=== PATIENT | male | born 1980 | race Asian ===

== ENCOUNTER 2018-06-15 07:48 | Inpatient (IN) ==
[2018-06-15] MEDS ORDERED: Etomidate Inj 20 MG/10 ML Ampul IV.PUSH ONE (07:59)
[2018-06-15] MEDS ORDERED: Morphine Inj 4 MG/ML Vial ONE (08:03)
[2018-06-15] MEDS ORDERED: ceFAZolin 2 GM Premix Inj 2 GM/50 ML PIGGYBACK IV.SIG ONE ×2 (08:05→08:18)
[2018-06-15] MEDS ORDERED: Diphtheria/Tetanus/Pertussis Vaccine Inj 0.5 ML Syringe IM ONE (08:05)
[2018-06-15 08:15] LABS: Baso # (Auto) 0.1 th/mm3 (0.0-0.2); Baso % (Auto) 0.4 % (0.0-2.0); Eos # (Auto) 0.2 th/mm3 (0.0-0.4); Eos % (Auto) 0.7 % (0.0-4.0); Hematocrit 38.3 % (39.0-51.0); Hemoglobin 12.6 gm/dL (13.0-17.0); Lymph # (Auto) 5.3 th/mm3 (1.0-4.8); Lymph % (Auto) 21.1 % (9.0-44.0); Mean Corpuscular HGB Conc 32.8 % (32.0-36.0); Mean Corpuscular Hemoglobin 20.6 pg (27.0-34.0); Mean Corpuscular Volume 62.8 fL (80.0-100.0); Mean Platelet Volume 8.7 fL (7.0-11.0); Mono % (Auto) 4.2 % (0.0-8.0); Neut # (Auto) 18.5 th/mm3 (1.8-7.7); Neut % (Auto) 73.6 % (16.0-70.0); Platelet Count 364 th/mm3 (150-450); Red Cell Distribution Width 16.9 % (11.6-17.2); White Blood Count 25.1 th/mm3 (4.0-11.0)
[2018-06-15] MEDS ORDERED: Morphine Inj 4 MG/ML Vial IV.PUSH ONE (08:18)
[2018-06-15] MEDS ORDERED: Succinylcholine Inj 100 MG/5 ML Syringe IV.PUSH ONE ×2 (08:18→12:15)
[2018-06-15] MEDS ORDERED: Post-op Orders (for Pharmacy) OTHER ONE (08:25)
[2018-06-15] MEDS ORDERED: Naloxone Inj 0.4 MG/ML Vial IV.PUSH PRN (08:25)
[2018-06-15] MEDS ORDERED: Bisacodyl 10 MG Supp RECTAL PRN (08:25)
[2018-06-15 08:30] LABS: Calcium 8.2 mg/dL (8.5-10.1); Carbon Dioxide 28.3 meq/L (21.0-32.0); Potassium 3.4 meq/L (3.5-5.1)
[2018-06-15] MEDS ORDERED: Sod Chloride 0.9% Inj 1,000 ML IV.CONT SCH (08:30)
[2018-06-15 08:31] LABS: Activated Partial Thrombo Time 21.2 sec (24.3-30.1); Prothrombin Time 10.4 sec (9.8-11.6)
--- NOTE | 2018-06-15 08:32 | ED ---
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 Interventions: ED Discharge Assessment Last Done: 06/15/18 12:51 Status ED Status: Left Department Discharge Information Discharge Date/Time: 06/15/18 12:51
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
[2018-06-15 09:00] LABS: Eosinophils 2 % (0-4); Lymphocytes 24 % (9-44); Monocytes 2 % (0-8); Ovalocytes 1+; Platelet Estimate Normal (Normal); Platelet Morphology Normal (Normal); Tallied Nucleated RBC 1 (0-0); Target Cells 1+
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
[2018-06-15] MEDS ORDERED: fentaNYL 10 mcg/mL Premix Drip 2,500 MCG/250 ML BAG IV.SIG PRN (09:29)
[2018-06-15] MEDS ORDERED: Sodium Phosphate Inj 30 MMOL in Sodium Chlor 0.9% Inj 250 ML IV.SIG PRN (09:30)
[2018-06-15] MEDS ORDERED: Magnesium Sulfate Inj 2 GM in Sodium Chlor 0.9% Inj 96 ML IV.SIG PRN (09:30)
[2018-06-15] MEDS ORDERED: Potassium Phosphate 500 MG Soluble Tablet PO PRN ×2 (09:30)
[2018-06-15] MEDS ORDERED: Magnesium Sulfate Inj 4 GM in Sodium Chlor 0.9% Inj 92 ML IV.SIG PRN (09:30)
[2018-06-15] MEDS ORDERED: Potassium Chloride 25 MEQ Effervescent Tablet PO PRN (09:30)
[2018-06-15] MEDS ORDERED: Potassium Chlor 20 mEq Premix 20 MEQ/100 ML PIGGYBACK IV.SIG PRN ×2 (09:30)
[2018-06-15] MEDS ORDERED: Magnesium Oxide 400 MG Tablet PO PRN (09:30)
[2018-06-15] MEDS ORDERED: Potassium Phosphate Inj 30 MMOL in Sodium Chlor 0.9% Inj 250 ML IV.SIG PRN (09:30)
[2018-06-15] MEDS ORDERED: Potassium Chlor 40 mEq Premix 40 MEQ/100 ML PIGGYBACK IV.SIG PRN ×2 (09:30)
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
--- NOTE | 2018-06-15 11:32 | P.OP ---
- Preoperative Diagnosis (1) Fracture of patella, right, open Date of procedure: 06/15/18 Procedure: Irrigation and debridement of open right patella fracture, open reduction internal fixation right patella Anesthesia: GETA Surgeon: Bayron Barker MD Prosthetic Aides Teacher: Rommel Dupont PA-C The surgical procedure was assisted by my physician manufacturing assistant. My P.A. presence was necessary throughout this case for the manipulation and positioning of the surgical extremity. My P.A. was assisting me throughout the duration of this procedure. The skill set of a physician manufacturing assistant was medically necessary to complete this procedure. During the surgical case the surgical attendant was working at the back table and the physician manufacturing assistant was directly assisting me. Operation and Findings: Implants used: ITS 3.5 cannulated screws Details of procedure: This patient had an injury resulting in displaced open right patella fracture and displaced right acetabular fracture. Patient is intubated and sedated. He is unable to give consent and no family was available for consent. I discussed this case with Dr. Cardenas. We agreed that case was medically necessary and medically urgent to perform irrigation and debridement of open fracture. Patient was brought to the operating room and placed on the OR table. IV sedation and GETA were administered by anesthesiologist and IV antibiotics were given prior to incision. A timeout procedure was performed. The operative leg was prepped with alcohol followed by Hibiclens and draped in the usual sterile fashion. The procedure began with irrigation and debridement of open fracture. The traumatic lacerations were extended proximally distally. The fracture site was visualized. Small bone fragments were excised. There was a small area of gross contamination. An excisional debridement was performed with rongeurs and scalpel. After excision of contaminated tissue, the wound was thoroughly irrigated with pulsatile lavage. Next, attention was turned towards reduction of fracture. Multiple small for bone fragments were excised. There was one large fragment of the superior lateral aspect of the patella. This fragment was reduced with fracture tenaculums. 2 guidepins were placed across the fracture. Fluoroscopy confirmed appropriate guidepin placement. Screw lengths were measured. Cannulated drill was placed over the guide pins. 2 screws were now placed. Good compression was obtained. Fluoroscopy confirmed well-placed hardware with well-aligned fracture. The retinaculum was now closed with #1 PDS, subcutaneous tissue was closed with 3-0 PDS and skin was closed with le. Sterile dressings were applied. The patient was transferred to [facility] in stable condition. He was placed into a knee immobilizer.
[2018-06-15] MEDS ORDERED: Post-op Orders (for Pharmacy) OTHER STA (11:49)
[2018-06-15] MEDS ORDERED: Phenylephrine/NS 1000 MCG/10ML Syringe IV.PUSH ONE (12:00)
[2018-06-15] MEDS ORDERED: Sodium Chlor 0.9% Inj 250 ML IV.SIG ONE (12:00)
[2018-06-15] MEDS ORDERED: fentaNYL Citrate Inj 100 MCG/2 ML Ampul ONE (12:07)
[2018-06-15 13:05] LABS: ABG Base Excess -0.3 mmol/L (-2-2); ABG PCO2 43 mmHg (38-42); ABG PO2 217 mmHg (61-120)
[2018-06-15] MEDS: Propofol 1000 mg/100 ml Inj 1,000 MG/100 ML BOTTLE IV.CONT PRN (14:33)
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
[2018-06-15] MEDS: Vancomycin Inj 1,000 MG in Sodium Chlor 0.9% Inj 250 ML IV.SIG SCH (18:18)
[2018-06-15] MEDS: ceFAZolin 2 GM Premix Inj 2 GM/50 ML PIGGYBACK IV.SIG SCH (18:19)
[2018-06-15 19:27] LABS: Bilirubin,Urine Negative (Negative); Clarity,Urine Clear (Clear); Color,Urine Straw (Yellw/Straw); Glucose,Urine (UA) Negative (Negative); Leukocyte Esterase,Urine Negative (Negative); Mucus,Urine Few /lpf (Occasional); Nitrite,Urine Negative (Negative); Specific Gravity,Urine 1.012 (1.002-1.035)
[2018-06-15 19:46] LABS: Amphetamine Screen,Urine Neg (Neg); Barbiturate Screen,Urine Neg (Neg); Cannabinoid Screen,Urine Neg (Neg); Cocaine Screen,Urine Neg (Neg)
[2018-06-15 19:50] LABS: Opiate Screen,Urine Neg (Neg)
[2018-06-15] MEDS ORDERED: Chlorhexidine 0.12% Oral Kit 15 ML UDC OROPHARYNG SCH (20:00)
[2018-06-15] MEDS: Gentamicin Inj 80 MG in Sodium Chlor 0.9% Inj 100 ML IV.SIG SCH (20:17)
[2018-06-16] MEDS: Oral Hygiene Kit OROPHARYNG SCH ×2 (00:30→15:58)
[2018-06-16] MEDS: ceFAZolin 2 GM Premix Inj 2 GM/50 ML PIGGYBACK IV.SIG SCH ×3 (01:39→18:02)
[2018-06-16] MEDS: Propofol 1000 mg/100 ml Inj 1,000 MG/100 ML BOTTLE IV.CONT PRN ×2 (01:44→11:32)
[2018-06-16] MEDS: Gentamicin Inj 80 MG in Sodium Chlor 0.9% Inj 100 ML IV.SIG SCH ×3 (02:57→18:02)
[2018-06-16] MEDS: Vancomycin Inj 1,000 MG in Sodium Chlor 0.9% Inj 250 ML IV.SIG SCH (03:57)
[2018-06-16 06:45] LABS: Calcium 7.6 mg/dL (8.5-10.1); Carbon Dioxide 27.1 meq/L (21.0-32.0); Potassium 3.8 meq/L (3.5-5.1)
[2018-06-16 07:03] LABS: Hematocrit 24.5 % (39.0-51.0); Hemoglobin 8.2 gm/dL (13.0-17.0); Mean Corpuscular HGB Conc 33.4 % (32.0-36.0); Mean Corpuscular Hemoglobin 20.6 pg (27.0-34.0); Mean Corpuscular Volume 61.6 fL (80.0-100.0); Mean Platelet Volume 8.5 fL (7.0-11.0); Platelet Count 199 th/mm3 (150-450); Red Blood Count 3.97 mil/mm3 (4.50-5.90); Red Cell Distribution Width 16.2 % (11.6-17.2); White Blood Count 10.6 th/mm3 (4.0-11.0)
[2018-06-16] MEDS: Pantoprazole Inj 40 MG Vial IV.PUSH SCH (09:01)
[2018-06-16] MEDS: Senna/Docusate Sodium 8.6/50 MG Tablet PO SCH (09:02)
--- NOTE | 2018-06-16 10:54 | P.PNOP ---
Subjective Interval history: s/p right open patella fx s/p right acetabulum fx intubated/sedated. no changes Physical Exam Vital signs: Vital Signs 06/15/18 11:47 06/15/18 12:00 06/15/18 14:12 Temperature 99.1 F Pulse Rate 65 Respiratory Rate 16 16 Blood Pressure 160/80 H Pulse Oximetry 100 100 100 06/15/18 16:00 06/15/18 16:21 06/15/18 16:24 Temperature 100.6 F H Pulse Rate 67 70 Respiratory Rate 16 16 16 Blood Pressure 131/75 Pulse Oximetry 100 100 06/15/18 19:49 06/15/18 19:52 06/15/18 20:00 Temperature 99.2 F Pulse Rate 78 76 Respiratory Rate 16 16 25 H Blood Pressure 116/65 Pulse Oximetry 98 99 06/16/18 00:00 06/16/18 01:06 06/16/18 03:53 Temperature 100.2 F H Pulse Rate 70 66 Respiratory Rate 16 17 22 Blood Pressure 99/56 L Pulse Oximetry 98 99 06/16/18 04:00 06/16/18 04:20 06/16/18 08:00 Temperature 99.5 F 98.4 F Pulse Rate 68 61 Respiratory Rate 16 22 16 Blood Pressure 112/71 102/58 L Pulse Oximetry 97 100 100 06/16/18 09:00 Temperature Pulse Rate 63 Respiratory Rate Blood Pressure Pulse Oximetry Intake & Output 06/15/18 06/16/18 06/16/18 18:59 06:59 18:59 Intake Total 1999 552 / 552 Output Total 320 / 320 2650 / 2650 Balance 1680 / 1680 -2097 / -2097 Weight 75.3 kg 74.7 kg Intake: IV 552 / 552 Diprivan 1000 mg/100 ml Inj 1, 100 / 100 000 mg In 100 ml @ 5 MCG/KG/MIN 2.259 mls/hr IV.CONT TITRATE PRN Rx#:[id number] Gentamicin Inj 80 MG In NS Inj 102 / 102 100 ML @ 200 mls/hr IV.SIG Q8H [facility] Rx#:[id number] Vancomycin Inj 1,000 MG In NS 250 / 250 Inj 250 ML @ 250 mls/hr IV.SIG Q12H [facility] Rx#:[id number] Ancef 2 GM Premix Inj 2 gm In 100 / 100 50 ml @ 100 mls/hr IV.SIG Q8H [facility] Rx#:[id number] Anesthesia Amount 1999 Output: Urine 300 / 300 Estimated Blood Loss 20 / 20 Urine Amount (Catheter) 2500 / 2500 Indwelling Urethral Catheter 2500 / 2500 Gastric Drainage 150 / 150 Orogastric Tube 150 / 150 Other: Bladder Irrigation Fluid - Amount Instilled Indwelling Urethral Catheter 10 Weight On Admission 75.3 kg Narrative: RLE: dressings clean and dry. knee brace in place. +bucks traction - Urinary Catheter Management Indwelling Urethral Catheter Cath placed during this visit: no Results - Labs CBC & Chem 7: 06/16/18 06:48 06/16/18 06:20 Laboratory Results - last 24 hr 06/15/18 06/15/18 06/15/18 07:50 12:48 18:10 WBC RBC Hgb Hct MCV MCH MCHC RDW Plt Count MPV Puncture Site Right radial Patient Temperature 98.6 O2 Saturation 97 ABG pH 7.37 L ABG pCO2 43 H ABG pO2 217 H ABG HCO3 24 ABG O2 Content 13.7 ABG Base Excess -0.3 ABG Methemoglobin 1.1 Darrick Test Present Hemoglobin 9.7 L Carboxyhemoglobin 0.7 O2 Delivery Device Prvc/16/500/1.0/+5 Inspired O2 50 Critical Value No Sodium Potassium Chloride Carbon Dioxide Anion Gap BUN Creatinine Estimated GFR Random Glucose Calcium Urine Color Urine Clarity Urine pH Ur Specific Raymond Urine Protein Urine Glucose (UA) Urine Ketones Urine Occult Blood Urine Nitrate Urine Bilirubin Urine Urobilinogen Ur Leukocyte Esterase Urine RBC Urine Mucus Micro UA Comment Urine Culture Comments Urine Opiates Screen Neg Ur Barbiturates Screen Neg Ur Amphetamines Screen Neg U Benzodiazepines Scrn Neg Urine Cocaine Screen Neg U Cannabinoids Screen Neg MTS Gel Crossmatch See Detail 06/15/18 06/16/18 06/16/18 18:10 04:00 06:20 WBC RBC Hgb Hct MCV MCH MCHC RDW Plt Count MPV Puncture Site Patient Temperature O2 Saturation ABG pH ABG pCO2 ABG pO2 ABG HCO3 ABG O2 Content ABG Base Excess ABG Methemoglobin Darrick Test Hemoglobin Carboxyhemoglobin O2 Delivery Device Inspired O2 Critical Value Sodium 143 Potassium 3.8 Chloride 110 H Carbon Dioxide 27.1 Anion Gap 6 BUN 10 Creatinine 1.08 Estimated GFR 77 L Random Glucose 109 H Calcium 7.6 L Urine Color Straw Urine Clarity Clear Urine pH 5.0 Ur Specific Raymond 1.012 Urine Protein Negative Urine Glucose (UA) Negative Urine Ketones Negative Urine Occult Blood Moderate H Urine Nitrate Negative Urine Bilirubin Negative Urine Urobilinogen Less than 2 Ur Leukocyte Esterase Negative Urine RBC 13 H Urine Mucus Few H Micro UA Comment Cath-culture not ind Urine Culture Comments Cath-cult not ind Urine Opiates Screen Ur Barbiturates Screen Ur Amphetamines Screen U Benzodiazepines Scrn Urine Cocaine Screen U Cannabinoids Screen MTS Gel Crossmatch See Detail 06/16/18 06:48 WBC 10.6 D RBC 3.97 L Hgb 8.2 L D Hct 24.5 L MCV 61.6 L MCH 20.6 L MCHC 33.4 RDW 16.2 Plt Count 199 D MPV 8.5 Puncture Site Patient Temperature O2 Saturation ABG pH ABG pCO2 ABG pO2 ABG HCO3 ABG O2 Content ABG Base Excess ABG Methemoglobin Darrick Test Hemoglobin Carboxyhemoglobin O2 Delivery Device Inspired O2 Critical Value Sodium Potassium Chloride Carbon Dioxide Anion Gap BUN Creatinine Estimated GFR Random Glucose Calcium Urine Color Urine Clarity Urine pH Ur Specific Raymond Urine Protein Urine Glucose (UA) Urine Ketones Urine Occult Blood Urine Nitrate Urine Bilirubin Urine Urobilinogen Ur Leukocyte Esterase Urine RBC Urine Mucus Micro UA Comment Urine Culture Comments Urine Opiates Screen Ur Barbiturates Screen Ur Amphetamines Screen U Benzodiazepines Scrn Urine Cocaine Screen U Cannabinoids Screen MTS Gel Crossmatch - Imaging Impressions Knee X-Ray 06/15/18 00:00 CONCLUSION: Good position and alignment on this postoperative view involving the patella. Abdomen/Pelvis CT 06/15/18 07:51 CONCLUSION: 1. There are comminuted fractures involving the superior posterior wall of the right acetabulum. 2. There are fracture fragments seen within the central joint of the right hip joint. Bone fragments are seen between the head of the right femur in the midportion of the acetabulum. No joint dislocation is demonstrated. 3. There is atelectasis in both lung bases. 4. 1.2 cm nodule associated with the right adrenal gland. Knee CT 06/15/18 08:58 CONCLUSION: 1. Status post internal fixation of a fracture involving the body of the patella. There is good position alignment of the fracture fragments and internal fixation screws. 2. 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 3D Reconstruction 06/15/18 11:20 CONCLUSION: 1. 3-D imaging as above Face CT 06/15/18 11:20 CONCLUSION: Right zygomaticomaxillary complex fracture as above. Right orbital roof fracture without pneumocephalus. Assessment and Plan - Assessment and Plan 1) Right Open Patella Fx with ORIF and wound closure - POD 1 2) Right Displaced Acetabulum fx -will not have OR time for patient today -will plan for OR on Wednesday for ORIF of right acetabulum -will give one dose of lovenox this AM -npo after MN -have parents sign consents -surgery tomorrow with Kate
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
[2018-06-16] MEDS ORDERED: Morphine Inj 4 MG/ML Vial IV.PUSH PRN (15:33)
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
[2018-06-17] MEDS: oxyCODONE/Acetaminophen 10/325 Tablet PO PRN ×2 (00:28→20:48)
[2018-06-17] MEDS: ceFAZolin 2 GM Premix Inj 2 GM/50 ML PIGGYBACK IV.SIG SCH ×4 (02:10→22:32)
[2018-06-17] MEDS: Gentamicin Inj 80 MG in Sodium Chlor 0.9% Inj 100 ML IV.SIG SCH (03:05)
[2018-06-17] MEDS: Sod Chloride 0.9% Inj 1,000 ML IV.CONT SCH (03:13)
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
[2018-06-17 06:15] LABS: Baso % (Auto) 0.3 % (0.0-2.0); Eos # (Auto) 0.1 th/mm3 (0.0-0.4); Eos % (Auto) 0.6 % (0.0-4.0); Hematocrit 23.7 % (39.0-51.0); Hemoglobin 7.8 gm/dL (13.0-17.0); Lymph # (Auto) 1.8 th/mm3 (1.0-4.8); Lymph % (Auto) 14.7 % (9.0-44.0); Mean Corpuscular HGB Conc 32.7 % (32.0-36.0); Mean Corpuscular Hemoglobin 20.7 pg (27.0-34.0); Mean Corpuscular Volume 63.2 fL (80.0-100.0); Mean Platelet Volume 8.9 fL (7.0-11.0); Mono # (Auto) 0.8 th/mm3 (0.0-0.9); Mono % (Auto) 6.9 % (0.0-8.0); Neut # (Auto) 9.4 th/mm3 (1.8-7.7); Neut % (Auto) 77.5 % (16.0-70.0); Platelet Count 190 th/mm3 (150-450); Red Blood Count 3.75 mil/mm3 (4.50-5.90); Red Cell Distribution Width 16.3 % (11.6-17.2); White Blood Count 12.2 th/mm3 (4.0-11.0)
--- NOTE | 2018-06-17 06:46 | P.PNOP ---
Subjective Interval history: POD 2 s/p ORIF right patella s/p right acetabulum fx extubated. awake. resting comfortably Physical Exam Vital signs: Vital Signs 06/16/18 08:00 06/16/18 09:00 06/16/18 11:51 Temperature 98.4 F Pulse Rate 61 63 65 Respiratory Rate 16 16 Blood Pressure 102/58 L Pulse Oximetry 100 97 06/16/18 12:00 06/16/18 14:25 06/16/18 15:48 Temperature 98.6 F Pulse Rate 64 76 Respiratory Rate 18 14 Blood Pressure 105/59 L Pulse Oximetry 100 100 06/16/18 16:00 06/16/18 20:00 06/16/18 20:45 Temperature 99.2 F 99.2 F Pulse Rate 101 H 110 H 101 H Respiratory Rate 19 22 16 Blood Pressure 139/76 124/67 Pulse Oximetry 100 100 06/17/18 00:00 06/17/18 04:00 Temperature 98.9 F 99.9 F H Pulse Rate 87 97 H Respiratory Rate 15 21 Blood Pressure 139/80 135/80 Pulse Oximetry 100 97 Intake & Output 06/16/18 06/16/18 06/17/18 06:59 18:59 06:59 Intake Total 652 / 652 700 / 700 254 / 254 Output Total 2650 / 2650 1870 / 1870 Balance -1997 / -1997 -1170 / -1170 254 / 254 Weight 74.7 kg Intake: IV 652 / 652 300 / 300 254 / 254 Diprivan 1000 mg/100 ml Inj 1, 100 / 100 100 / 100 000 mg In 100 ml @ 5 MCG/KG/MIN 2.259 mls/hr IV.CONT TITRATE PRN Rx#:[id number] Gentamicin Inj 80 MG In NS Inj 202 / 202 100 / 100 204 / 204 100 ML @ 200 mls/hr IV.SIG Q8H SALEEM Rx#:[id number] Vancomycin Inj 1,000 MG In NS 250 / 250 Inj 250 ML @ 250 mls/hr IV.SIG Q12H SALEEM Rx#:[id number] Ancef 2 GM Premix Inj 2 gm In 100 / 100 100 / 100 50 / 50 50 ml @ 100 mls/hr IV.SIG Q8H SALEEM Rx#:[id number] Other 400 / 400 Output: Estimated Blood Loss 20 / 20 Urine Amount (Catheter) 2500 / 2500 1700 / 1700 Indwelling Urethral Catheter 2500 / 2500 1700 / 1700 Gastric Drainage 150 / 150 150 / 150 Orogastric Tube 150 / 150 150 / 150 Other: Bladder Irrigation Fluid - Amount Instilled Indwelling Urethral Catheter 10 Narrative: RLE: dressings of knee clean and dry. intact. NVI. +bucks traction - Urinary Catheter Management Indwelling Urethral Catheter Cath placed during this visit: yes Reason for continuing: Other continuation reason Insertion date: 06/15/18 Insertion time: 09:00 Results - Labs CBC & Chem 7: 06/17/18 05:15 06/16/18 06:20 Laboratory Results - last 24 hr 06/16/18 06/16/18 06/16/18 04:00 06:20 06:48 WBC 10.6 D RBC 3.97 L Hgb 8.2 L D Hct 24.5 L MCV 61.6 L MCH 20.6 L MCHC 33.4 RDW 16.2 Plt Count 199 D MPV 8.5 Neut % (Auto) Lymph % (Auto) [place] % (Auto) Eos % (Auto) Baso % (Auto) Neut # (Auto) Lymph # (Auto) [place] # (Auto) Eos # (Auto) Baso # (Auto) WBC Differential Differential Comment Sodium 143 Potassium 3.8 Chloride 110 H Carbon Dioxide 27.1 Anion Gap 6 BUN 10 Creatinine 1.08 Estimated GFR 77 L Random Glucose 109 H Calcium 7.6 L MTS Gel Crossmatch See Detail 06/17/18 05:15 WBC 12.2 H RBC 3.75 L Hgb 7.8 L Hct 23.7 L MCV 63.2 L MCH 20.7 L MCHC 32.7 RDW 16.3 Plt Count 190 MPV 8.9 Neut % (Auto) 77.5 H Lymph % (Auto) 14.7 [place] % (Auto) 6.9 Eos % (Auto) 0.6 Baso % (Auto) 0.3 Neut # (Auto) 9.4 H Lymph # (Auto) 1.8 [place] # (Auto) 0.8 Eos # (Auto) 0.1 Baso # (Auto) 0.0 WBC Differential . Differential Comment Auto diff final Sodium Potassium Chloride Carbon Dioxide Anion Gap BUN Creatinine Estimated GFR Random Glucose Calcium MTS Gel Crossmatch - Imaging Impressions Head CT 06/16/18 00:00 CONCLUSION: 1. Right facial, orbital and frontal bone fractures again identified. 2. Stable intracranial contents without evidence of subdural hematoma focal edema or brain contusion. Chest X-Ray 06/17/18 06:00 CONCLUSION: Mild bibasilar atelectasis. Assessment and Plan - Assessment and Plan 1) Right Open Patella Fx with ORIF and wound closure - POD 2 2) Right Displaced Acetabulum fx -surgery today with Kate for ORIF right acetabulum -patient is no consentable since extubated. patient to sign consent this AM
[2018-06-17 07:04] LABS: Anion Gap 10 meq/L (5-15); Blood Urea Nitrogen 9 mg/dL (7-18); Calcium 8.5 mg/dL (8.5-10.1); Carbon Dioxide 26.5 meq/L (21.0-32.0); Chloride 108 meq/L (98-107); Glomerular Filtration Rate Greater Than 89 mL/min (>89); Glucose,Random 90 mg/dL (74-106); Sodium 144 meq/L (136-145)
[2018-06-17] MEDS ORDERED: Heparin - SQ 10,000 UNITS/ML Vial SQ ONE (07:05)
[2018-06-17] MEDS ORDERED: SODIUM CHLOR 0.9% IV.SIG SCH ×2 (08:00→22:00)
[2018-06-17] MEDS ORDERED: TRANEXAMIC ACID IV.SIG SCH (08:00)
[2018-06-17] MEDS: Pantoprazole Inj 40 MG Vial IV.PUSH SCH (09:18)
--- NOTE | 2018-06-17 10:07 | ECG ---
Date Performed: 06/16/2018 Time Performed: 06:12:40 PTAGE: 37 years EKG: Sinus rhythm . Normal ECG NO PREVIOUS TRACING DOCTOR: Opal Prince Interpretating Date/Time 06/17/2018 10:05:20
[2018-06-17] MEDS ORDERED: Morphine Inj 4 MG/ML Vial IV.PUSH PRN (10:29)
[2018-06-17] MEDS ORDERED: Post-op Orders (for Pharmacy) OTHER STA (10:29)
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
[2018-06-17] MEDS ORDERED: fentaNYL Citrate Inj 100 MCG/2 ML Ampul ONE (11:13)
[2018-06-17 11:35] LABS: Hematocrit 28.7 % (39.0-51.0); Hemoglobin 9.3 gm/dL (13.0-17.0)
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
[2018-06-17] MEDS ORDERED: ceFAZolin 2 GM Premix Inj 2 GM/50 ML PIGGYBACK IV.SIG SCH (17:00)
[2018-06-17] MEDS: Oral Hygiene Kit OROPHARYNG SCH ×2 (18:34→20:56)
[2018-06-17] MEDS: Senna/Docusate Sodium 8.6/50 MG Tablet PO SCH ×3 (18:34→20:56)
--- NOTE | 2018-06-17 19:47 | P.PN ---
Subjective Interval history: Patient not currently in his room. No acute changes per nursing. Physical Exam Vital signs: Vital Signs 06/16/18 20:00 06/16/18 20:45 06/17/18 00:00 Temperature 99.2 F 98.9 F Pulse Rate 110 H 101 H 87 Respiratory Rate 22 16 15 Blood Pressure 124/67 139/80 Pulse Oximetry 100 100 06/17/18 04:00 06/17/18 06:00 06/17/18 07:15 Temperature 99.9 F H 99.9 F H Pulse Rate 97 H 83 96 H Respiratory Rate 21 14 Blood Pressure 135/80 130/74 Pulse Oximetry 97 99 06/17/18 09:49 06/17/18 11:00 06/17/18 11:15 Temperature 98.9 F 98.0 F Pulse Rate 87 85 75 Respiratory Rate 16 23 23 Blood Pressure 124/87 127/71 139/77 Pulse Oximetry 92 L 94 L 06/17/18 11:30 06/17/18 11:45 06/17/18 12:00 Temperature Pulse Rate 77 71 73 Respiratory Rate 23 23 16 Blood Pressure 131/75 141/78 H 143/78 H Pulse Oximetry 95 95 95 Intake & Output 06/17/18 06/17/18 06/18/18 06:59 18:59 06:59 Intake Total 494 / 494 2150 / 2150 Output Total 950 / 950 900 / 900 Balance -456 / -456 1250 / 1250 Weight 69.7 kg Intake: IV 254 / 254 50 / 50 Gentamicin Inj 80 MG In NS Inj 204 / 204 100 ML @ 200 mls/hr IV.SIG Q8H SALEEM Rx#:[id number] Ancef 2 GM Premix Inj 2 gm In 50 / 50 50 / 50 50 ml @ 100 mls/hr IV.SIG Q8H SALEEM Rx#:[id number] Oral 240 / 240 Anesthesia Amount 1700 / 1700 Intake (Blood Product) Amt 400 / 400 Rbc As-3 Leukoreduced Unit 400 / 400 [id number] Output: Estimated Blood Loss 300 / 300 Urine Amount (Catheter) 950 / 950 600 / 600 Indwelling Urethral Catheter 950 / 950 600 / 600 - Urinary Catheter Management Indwelling Urethral Catheter Cath placed during this visit: yes Reason for continuing: Other continuation reason Insertion date: 06/15/18 Insertion time: 09:00 Results - Labs CBC & Chem 7: 06/17/18 11:20 06/17/18 05:15 Laboratory Results - last 24 hr 06/16/18 06/17/18 06/17/18 04:00 05:15 05:15 WBC 12.2 H RBC 3.75 L Hgb 7.8 L Hct 23.7 L MCV 63.2 L MCH 20.7 L MCHC 32.7 RDW 16.3 Plt Count 190 MPV 8.9 Neut % (Auto) 77.5 H Lymph % (Auto) 14.7 [place] % (Auto) 6.9 Eos % (Auto) 0.6 Baso % (Auto) 0.3 Neut # (Auto) 9.4 H Lymph # (Auto) 1.8 [place] # (Auto) 0.8 Eos # (Auto) 0.1 Baso # (Auto) 0.0 WBC Differential . Differential Comment Auto diff final Sodium 144 Potassium 4.0 Chloride 108 H Carbon Dioxide 26.5 Anion Gap 10 BUN 9 Creatinine 0.92 Estimated GFR Greater than 89 Random Glucose 90 Calcium 8.5 D MTS Gel Crossmatch See Detail 06/17/18 11:20 WBC RBC Hgb 9.3 L Hct 28.7 L MCV MCH MCHC RDW Plt Count MPV Neut % (Auto) Lymph % (Auto) [place] % (Auto) Eos % (Auto) Baso % (Auto) Neut # (Auto) Lymph # (Auto) [place] # (Auto) Eos # (Auto) Baso # (Auto) WBC Differential Differential Comment Sodium Potassium Chloride Carbon Dioxide Anion Gap BUN Creatinine Estimated GFR Random Glucose Calcium MTS Gel Crossmatch - Imaging Impressions Pelvis X-Ray 06/17/18 00:00 CONCLUSION: Intact immediate postsurgical changes. Chest X-Ray 06/17/18 06:00 CONCLUSION: Mild bibasilar atelectasis. Assessment and Plan - Assessment (1) Zygoma fracture Code(s): S02.402A - Zygomatic fracture, unspecified side, initial encounter for closed fracture Status: Acute - Plan 37-year-old male with right ZMC fracture Patient is tentatively booked for ORIF of right ZMC fracture in 1 week
[2018-06-17] MEDS ORDERED: VANCOMYCIN IV.SIG SCH (22:00)
[2018-06-18] MEDS: Oral Hygiene Kit OROPHARYNG SCH ×3 (00:22→09:32)
[2018-06-18] MEDS: Vancomycin Inj 1,000 MG in Sodium Chlor 0.9% Inj 250 ML IV.SIG SCH ×3 (00:27→21:34)
[2018-06-18] MEDS: ceFAZolin 2 GM Premix Inj 2 GM/50 ML PIGGYBACK IV.SIG SCH ×3 (04:18→21:33)
[2018-06-18 06:31] LABS: Hematocrit 27.4 % (39.0-51.0); Hemoglobin 9.2 gm/dL (13.0-17.0)
--- NOTE | 2018-06-18 06:49 | P.PNOP ---
Subjective Interval history: POD 1 s/p ORIF right acetabulum POD 3 s/p ORIF right patella doing well. reports pain but resting comfortably. states went to radiation therapy yesterday as ordered Physical Exam Vital signs: Vital Signs 06/17/18 07:15 06/17/18 09:49 06/17/18 11:00 Temperature 99.9 F H 98.9 F 98.0 F Pulse Rate 96 H 87 85 Respiratory Rate 14 16 23 Blood Pressure 130/74 124/87 127/71 Pulse Oximetry 99 92 L 06/17/18 11:15 06/17/18 11:30 06/17/18 11:45 Temperature Pulse Rate 75 77 71 Respiratory Rate 23 23 23 Blood Pressure 139/77 131/75 141/78 H Pulse Oximetry 94 L 95 95 06/17/18 12:00 06/17/18 20:00 06/18/18 00:00 Temperature 98.7 F 99.5 F Pulse Rate 73 100 H 81 Respiratory Rate 16 18 18 Blood Pressure 143/78 H 135/74 143/82 H Pulse Oximetry 95 100 98 06/18/18 04:00 Temperature 100.5 F H Pulse Rate 18 L Respiratory Rate 18 Blood Pressure 142/78 H Pulse Oximetry 98 Intake & Output 06/17/18 06/17/18 06/18/18 06:59 18:59 06:59 Intake Total 494 / 494 2150 / 2150 590 / 590 Output Total 950 / 950 900 / 900 1900 / 1900 Balance -456 / -456 1250 / 1250 -1310 / -1310 Weight 69.7 kg 79.1 kg Intake: IV 254 / 254 50 / 50 350 / 350 Gentamicin Inj 80 MG In NS Inj 204 / 204 100 ML @ 200 mls/hr IV.SIG Q8H [facility] Rx#:[id number] Vancomycin Inj 1,000 MG In NS 250 / 250 Inj 250 ML @ 250 mls/hr IV.SIG Q12H [facility] Rx#:[id number] Ancef 2 GM Premix Inj 2 gm In 50 / 50 50 / 50 100 / 100 50 ml @ 100 mls/hr IV.SIG Q8H [facility] Rx#:[id number] Oral 240 / 240 240 / 240 Anesthesia Amount 1700 / 1700 Intake (Blood Product) Amt 400 / 400 Rbc As-3 Leukoreduced Unit 400 / 400 [id number] Output: Urine 1900 / 1900 Estimated Blood Loss 300 / 300 Urine Amount (Catheter) 950 / 950 600 / 600 Indwelling Urethral Catheter 950 / 950 600 / 600 Other: Date of Last Bowel Movement 06/14/18 Narrative: RLE: Dressings over hip and knee are clean and dry. intact. +knee brace. nvi distally with good dorsiflexion and full sensation - Urinary Catheter Management Indwelling Urethral Catheter Cath placed during this visit: yes Reason for continuing: Other continuation reason Insertion date: 06/15/18 Insertion time: 09:00 Results - Labs CBC & Chem 7: 06/18/18 05:45 06/17/18 05:15 Laboratory Results - last 24 hr 06/16/18 06/17/18 06/17/18 04:00 05:15 11:20 Hgb 9.3 L Hct 28.7 L Sodium 144 Potassium 4.0 Chloride 108 H Carbon Dioxide 26.5 Anion Gap 10 BUN 9 Creatinine 0.92 Estimated GFR Greater than 89 Random Glucose 90 Calcium 8.5 D MTS Gel Crossmatch See Detail 06/18/18 05:45 Hgb 9.2 L Hct 27.4 L Sodium Potassium Chloride Carbon Dioxide Anion Gap BUN Creatinine Estimated GFR Random Glucose Calcium MTS Gel Crossmatch - Imaging Impressions Pelvis X-Ray 06/17/18 00:00 CONCLUSION: Intact immediate postsurgical changes. Assessment and Plan - Assessment and Plan 1) Right Open Patella Fx with ORIF and wound closure - POD 3 2) Right Displaced Acetabulum fx s/p ORIF - POD 1 -TTWB RLE -no quad sets or leg lefts -daily dressing changes to hip and knee -knee brace at all times -no ROM of knee -will get repeat xrays today of knee to ensure patella fixation is holding after pelvic surgery -CM for rehab placement -medical management -DVT prophylaxis -ortho surgeries complete at this time -f/u with Kate or AELSSANDRO in 2 weeks
--- NOTE | 2018-06-18 07:59 | XR ---
EXAM DATE: 06/18/2018 7:47 AM EDT AGE/SEX: 37 years / Male INDICATIONS: Right knee pain. CLINICAL DATA: This is the patient's subsequent encounter. Patient reports that signs and symptoms h ave been present for 3 days and indicates a pain score of 6/10. MEDICAL/SURGICAL HISTORY: None. . Screws in right patella. COMPARISON: [facility] – [place], FEMUR RIGHT 2V, 06/15/2018. . FINDINGS: Views of the right knee demonstrates 2 screws traversing the patella which is near anatomic in alignm ent. Fracture line still evident. Soft tissue swelling. Small joint effusion CONCLUSION: Internal fixation with 2 screws traversing the patella fracture Electronically signed by: Sherwin Harmon MD 06/18/2018 7:57 AM EDT
[2018-06-18] MEDS: Pantoprazole Inj 40 MG Vial IV.PUSH SCH ×2 (08:37→09:28)
[2018-06-18] MEDS: Senna/Docusate Sodium 8.6/50 MG Tablet PO SCH ×4 (08:38→21:53)
[2018-06-18] MEDS: oxyCODONE/Acetaminophen 10/325 Tablet PO PRN ×2 (08:38→12:54)
[2018-06-18] MEDS ORDERED: Enoxaparin Inj 30 MG/0.3 ML Syringe SQ SCH ×2 (09:00→10:00)
[2018-06-18] MEDS: Sod Chloride 0.9% Inj 1,000 ML IV.CONT SCH ×2 (09:32→18:43)
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
[2018-06-18] MEDS: Hypromellose 0.3% Opth Gel 10 GM Bottle RIGHT EYE SCH ×2 (17:02→21:36)
[2018-06-18] MEDS: Gentamicin Inj 80 MG in Sodium Chlor 0.9% Inj 100 ML IV.SIG SCH (18:43)
[2018-06-19] MEDS: ceFAZolin 2 GM Premix Inj 2 GM/50 ML PIGGYBACK IV.SIG SCH ×2 (05:04→11:45)
--- NOTE | 2018-06-19 05:37 | XR ---
EXAM DATE: 06/19/2018 5:31 AM EDT AGE/SEX: 37 years / Male INDICATIONS: Shortness of breath. CLINICAL DATA: This is the patient's subsequent encounter. Patient reports that signs and symptoms h ave been present for 1 day and indicates a pain score of Nonresponsive. MEDICAL/SURGICAL HISTORY: None. None. COMPARISON: [facility] – [place], CHEST 1V SINGLE AP, 06/17/2018. . FINDINGS: Single AP view of the chest. The lungs are clear. Cardiomediastinal silhouette within nor mal limits. No evidence of pleural effusion or pneumothorax. CONCLUSION: No acute cardiopulmonary disease identified. Electronically signed by: Aldo George MD 06/19/2018 5:36 AM EDT
--- NOTE | 2018-06-19 06:34 | P.PNOP ---
Subjective Interval history: POD 2 s/p ORIF right acetabulum POD 4 s/p ORIF right patella Doing well. Resting comfortably. Reports pain in right hip. No other changes. Physical Exam Vital signs: Vital Signs 06/18/18 08:00 06/18/18 10:06 06/18/18 11:22 Temperature 99.3 F Pulse Rate 116 H Respiratory Rate 20 16 Blood Pressure 141/83 H Pulse Oximetry 98 99 06/18/18 11:30 06/18/18 11:31 06/18/18 11:32 Temperature 98.4 F Pulse Rate 95 H 100 H Respiratory Rate 18 Blood Pressure 132/82 Pulse Oximetry 95 95 06/18/18 14:51 06/18/18 15:48 06/18/18 16:00 Temperature 99.2 F Pulse Rate 119 H 109 H Respiratory Rate 20 18 19 Blood Pressure 150/89 H Pulse Oximetry 95 93 L 06/18/18 17:02 06/18/18 19:30 06/18/18 20:00 Temperature 100.1 F H Pulse Rate 116 H Respiratory Rate 18 18 18 Blood Pressure 135/82 Pulse Oximetry 96 06/18/18 21:30 06/18/18 22:00 06/19/18 00:00 Temperature Pulse Rate 116 H Respiratory Rate 20 18 18 Blood Pressure Pulse Oximetry 06/19/18 03:27 06/19/18 04:00 Temperature 99.7 F H Pulse Rate 115 H 110 H Respiratory Rate 20 18 Blood Pressure 119/79 Pulse Oximetry 95 Intake & Output 06/18/18 06/18/18 06/19/18 06:59 18:59 06:59 Intake Total 590 / 590 3860 / 3860 344 / 344 Output Total 1900 / 1900 800 / 800 Balance -1310 / -1310 3060 / 3060 344 / 344 Weight 79.1 kg 79.1 kg Intake: IV 350 / 350 2900 / 2900 0 / 0 LR 1000 mL Inj 1,000 ML @ 100 1000 / 1000 mls/hr IV.CONT .Q10H [facility] Rx#: [id number] NS Inj 1,000 ML @ 100 mls/hr IV 1000 / 1000 .CONT .Q10H [facility] Rx#:[id number] Vancomycin Inj 1,000 MG In NS 250 / 250 250 / 250 Inj 250 ML @ 250 mls/hr IV.SIG Q12H [facility] Rx#:[id number] Ancef 2 GM Premix Inj 2 gm In 100 / 100 50 / 50 0 / 0 50 ml @ 100 mls/hr IV.SIG Q8H [facility] Rx#:[id number] Oral 240 / 240 960 / 960 344 / 344 Output: Urine 1900 / 1900 250 / 250 Urine Amount (Catheter) 550 / 550 Indwelling Urethral Catheter 550 / 550 Other: # Voids 3 4 Date of Last Bowel Movement 06/14/18 06/14/18 # Bowel Movements 0 Narrative: RLE: Dressings clean and dry. Knee brace in place. Full sensation distally with good dorsiflexion. Negative Homans sign. - Urinary Catheter Management Indwelling Urethral Catheter Cath placed during this visit: yes, but has since been removed by the nurse Reason for continuing: Decision to DC catheter Insertion date: 06/15/18 Insertion time: 09:00 Removal date: 06/18/18 Results - Labs CBC & Chem 7: 06/18/18 05:45 06/17/18 05:15 Laboratory Results - last 24 hr 06/15/18 06/16/18 06/18/18 07:50 04:00 05:45 Hgb 9.2 L Hct 27.4 L MTS Gel Crossmatch See Detail See Detail - Imaging Impressions Knee X-Ray 06/18/18 00:00 CONCLUSION: Internal fixation with 2 screws traversing the patella fracture Chest X-Ray 06/19/18 06:00 CONCLUSION: No acute cardiopulmonary disease identified. Assessment and Plan - Problem List (1) Closed right acetabular fracture Code(s): S32.401A - Unspecified fracture of right acetabulum, initial encounter for closed fracture Status: Acute - Assessment and Plan 1) Right Acetabulum Fx s/p ORIF - POD 2 2) Right Open Patella Fx s/p ORIF - POD 4 -TTWB RLE -no quad sets or leg lifts -knee brace at all times -daily dressing changes of hip and knee -no ROM of knee -posterior hip precautions -medical mgmt -dvt prophylaxis -ortho surgeries complete -CM for DC planning to SNF vs home -f/u with Kate in 2 weeks E-FORCSE Prescription Drug Monitoring Database has been queried and verified prior to prescribing the controlled substance. Acute pain exception. This patient has normal, predicted, physiological, and time limited response to an adverse mechanical stimulus associated with surgery, trauma, or acute illness as described in my notes. There is a lack of alternative treatment options other than to include the prescribed narcotic treatment for this condition.
[2018-06-19] MEDS: Hypromellose 0.3% Opth Gel 10 GM Bottle RIGHT EYE SCH (08:38)
[2018-06-19] MEDS: Senna/Docusate Sodium 8.6/50 MG Tablet PO SCH ×2 (08:38→20:42)
[2018-06-19] MEDS: Enoxaparin Inj 30 MG/0.3 ML Syringe SQ SCH ×2 (08:39→20:40)
[2018-06-19] MEDS: Vancomycin Inj 1,000 MG in Sodium Chlor 0.9% Inj 250 ML IV.SIG SCH ×2 (09:00→23:46)
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
[2018-06-19] MEDS: Erythromycin 0.5% Opth Oint 3.5 GM Tube EACH EYE SCH ×3 (16:47→20:41)
[2018-06-20 04:41] LABS: Baso % (Auto) 0.2 % (0.0-2.0); Eos # (Auto) 0.3 th/mm3 (0.0-0.4); Eos % (Auto) 2.6 % (0.0-4.0); Hemoglobin 8.5 gm/dL (13.0-17.0); Lymph # (Auto) 1.1 th/mm3 (1.0-4.8); Lymph % (Auto) 10.6 % (9.0-44.0); Mean Corpuscular HGB Conc 35.5 % (32.0-36.0); Mean Corpuscular Hemoglobin 22.8 pg (27.0-34.0); Mean Corpuscular Volume 64.3 fL (80.0-100.0); Mean Platelet Volume 8.2 fL (7.0-11.0); Mono # (Auto) 0.7 th/mm3 (0.0-0.9); Mono % (Auto) 6.2 % (0.0-8.0); Neut # (Auto) 8.7 th/mm3 (1.8-7.7); Neut % (Auto) 80.4 % (16.0-70.0); Platelet Count 297 th/mm3 (150-450); Red Blood Count 3.74 mil/mm3 (4.50-5.90); Red Cell Distribution Width 18.1 % (11.6-17.2); White Blood Count 10.8 th/mm3 (4.0-11.0)
[2018-06-20 04:43] LABS: Calcium 8.4 mg/dL (8.5-10.1); Carbon Dioxide 28.6 meq/L (21.0-32.0)
--- NOTE | 2018-06-20 06:49 | P.PNOP ---
Subjective Interval history: POd 3 s/p ORIF right acetabulum POD 5 s/p ORIF right patella doign well. pain controlled Physical Exam Vital signs: Vital Signs 06/19/18 08:00 06/19/18 11:00 06/19/18 14:26 Temperature 98.8 F Pulse Rate 113 H 102 H Respiratory Rate 16 17 Blood Pressure 135/72 Pulse Oximetry 93 L 06/19/18 15:00 06/19/18 15:21 06/19/18 16:00 Temperature 98.7 F Pulse Rate 108 H 116 H Respiratory Rate 18 16 Blood Pressure 135/72 Pulse Oximetry 96 06/19/18 18:04 06/19/18 20:00 06/20/18 00:00 Temperature 99.0 F 98.6 F Pulse Rate 114 H 105 H 110 H Respiratory Rate 18 18 Blood Pressure 129/79 140/77 Pulse Oximetry 95 95 06/20/18 04:00 Temperature 98.8 F Pulse Rate 95 H Respiratory Rate 18 Blood Pressure 135/72 Pulse Oximetry 96 Intake & Output 06/19/18 06/19/18 06/20/18 06:59 18:59 06:59 Intake Total 644 / 644 1260 / 1260 250 / 250 Output Total 1200 / 1200 Balance 644 / 644 60 / 60 250 / 250 Weight 79.1 kg Intake: IV 300 / 300 300 / 300 250 / 250 Vancomycin Inj 1,000 MG In NS 250 / 250 250 / 250 250 / 250 Inj 250 ML @ 250 mls/hr IV.SIG Q12H [facility] Rx#:[id number] Ancef 2 GM Premix Inj 2 gm In 50 / 50 50 / 50 50 ml @ 100 mls/hr IV.SIG Q8H [facility] Rx#:[id number] Oral 344 / 344 960 / 960 Output: Urine 1200 / 1200 Other: # Voids 4 3 Date of Last Bowel Movement 06/14/18 06/19/18 # Bowel Movements 2 Narrative: RLE: dressings clean and dry. itnact. NVI. +CKS. - Urinary Catheter Management Indwelling Urethral Catheter Cath placed during this visit: yes, but has since been removed by the nurse Reason for continuing: Decision to DC catheter Insertion date: 06/15/18 Insertion time: 09:00 Removal date: 06/18/18 Results - Labs CBC & Chem 7: 06/20/18 03:45 07/23/18 03:45 Laboratory Results - last 24 hr 06/20/18 06/20/18 03:45 03:45 WBC 10.8 RBC 3.74 L Hgb 8.5 L Hct 24.0 L MCV 64.3 L MCH 22.8 L MCHC 35.5 RDW 18.1 H Plt Count 297 D MPV 8.2 Neut % (Auto) 80.4 H Lymph % (Auto) 10.6 Hendricks % (Auto) 6.2 Eos % (Auto) 2.6 Baso % (Auto) 0.2 Neut # (Auto) 8.7 H Lymph # (Auto) 1.1 Hendricks # (Auto) 0.7 Eos # (Auto) 0.3 Baso # (Auto) 0.0 WBC Differential . Differential Comment Auto diff final Sodium 138 Potassium 4.0 Chloride 104 Carbon Dioxide 28.6 Anion Gap 5 BUN 16 Creatinine 1.07 Estimated GFR 77 L Random Glucose 104 Calcium 8.4 L Assessment and Plan - Problem List (1) Closed right acetabular fracture Code(s): S32.401A - Unspecified fracture of right acetabulum, initial encounter for closed fracture Status: Acute - Assessment and Plan 1) Right Acetabulum Fx s/p ORIF - POD 3 2) Right Open Patella Fx s/p ORIF - POD 5 -TTWB RLE -no quad sets or leg lifts -knee brace at all times -daily dressing changes of hip and knee -no ROM of knee -posterior hip precautions -medical mgmt -dvt prophylaxis -ortho surgeries complete -CM for DC planning to SNF vs home -f/u with Kate in 2 weeks [id number] Prescription Drug Monitoring Database has been queried and verified prior to prescribing the controlled substance. Acute pain exception. This patient has normal, predicted, physiological, and time limited response to an adverse mechanical stimulus associated with surgery, trauma, or acute illness as described in my notes. There is a lack of alternative treatment options other than to include the prescribed narcotic treatment for this condition.
[2018-06-20 08:49] VITALS: RESP 16
[2018-06-20] MEDS: Senna/Docusate Sodium 8.6/50 MG Tablet PO SCH (09:06)
[2018-06-20] MEDS: Erythromycin 0.5% Opth Oint 3.5 GM Tube EACH EYE SCH ×3 (09:08→19:34)
[2018-06-20] MEDS: Enoxaparin Inj 30 MG/0.3 ML Syringe SQ SCH (14:03)
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
--- NOTE | 2018-06-20 16:58 | P.PN ---
Subjective Interval history: Patient reports minimal pain to his face. He endorses ability to open his mouth wide, with "mild right facial pain" patient reports his vision is improving. Patient reports his bite is normal. Physical Exam Vital signs: Vital Signs 06/19/18 18:04 06/19/18 20:00 06/20/18 00:00 Temperature 99.0 F 98.6 F Pulse Rate 114 H 105 H 110 H Respiratory Rate 18 18 Blood Pressure 129/79 140/77 Pulse Oximetry 95 95 06/20/18 04:00 06/20/18 08:00 06/20/18 10:00 Temperature 98.8 F 98.4 F Pulse Rate 95 H 96 H 96 H Respiratory Rate 16 16 Blood Pressure 135/72 123/79 Pulse Oximetry 96 98 06/20/18 12:00 Temperature 98.6 F Pulse Rate 98 H Respiratory Rate 16 Blood Pressure 130/75 Pulse Oximetry 98 Intake & Output 06/19/18 06/20/18 06/20/18 18:59 06:59 18:59 Intake Total 1260 / 1260 250 / 250 Output Total 1200 / 1200 Balance 60 / 60 250 / 250 Weight 78.9 kg Intake: IV 300 / 300 250 / 250 Vancomycin Inj 1,000 MG In NS 250 / 250 250 / 250 Inj 250 ML @ 250 mls/hr IV.SIG Q12H [facility] Rx#:[id number] Ancef 2 GM Premix Inj 2 gm In 50 / 50 50 ml @ 100 mls/hr IV.SIG Q8H [facility] Rx#:[id number] Oral 960 / 960 Output: Urine 1200 / 1200 Other: # Voids 3 4 Date of Last Bowel Movement 06/19/18 06/19/18 # Bowel Movements 2 2 Narrative: Positive right chemosis Mild right exophthalmos Moderate right malar flattening Increased lateral projection of zygomatic arch Moderate edema - Urinary Catheter Management Indwelling Urethral Catheter Cath placed during this visit: yes, but has since been removed by the nurse Reason for continuing: Decision to DC catheter Insertion date: 06/15/18 Insertion time: 09:00 Removal date: 06/18/18 Results - Labs CBC & Chem 7: 06/20/18 03:45 06/20/18 03:45 Laboratory Results - last 24 hr 06/16/18 06/20/18 06/20/18 05:11 03:45 03:45 WBC 10.8 RBC 3.74 L Hgb 8.5 L Hct 24.0 L MCV 64.3 L MCH 22.8 L MCHC 35.5 RDW 18.1 H Plt Count 297 D MPV 8.2 Neut % (Auto) 80.4 H Lymph % (Auto) 10.6 [place] % (Auto) 6.2 Eos % (Auto) 2.6 Baso % (Auto) 0.2 Neut # (Auto) 8.7 H Lymph # (Auto) 1.1 [place] # (Auto) 0.7 Eos # (Auto) 0.3 Baso # (Auto) 0.0 WBC Differential . Differential Comment Auto diff final Sodium 138 Potassium 4.0 Chloride 104 Carbon Dioxide 28.6 Anion Gap 5 BUN 16 Creatinine 1.07 Estimated GFR 77 L Random Glucose 104 Calcium 8.4 L Vit D 1,25-Dihydroxy 53 - Procedures 06/15: RIGHT hip reduction 06/15: Intubated 06/15: I&D of open right patella fracture, ORIF right patella 06/16: Extubated 06/17: ORIF right acetabulum 06/17: Radiation therapy x1 right hip Assessment and Plan - Assessment (1) Zygoma fracture Code(s): S02.402A - Zygomatic fracture, unspecified side, initial encounter for closed fracture Status: Acute - Plan 37-year-old male with right ZMC fracture Had lengthy discussion with patient and patient's girlfriend Specifically discussed the risks of cosmetic deformity as well as changes in both position and function of his right eye should the patient not undergo operative reduction of his ZMC fracture Patient was given a mirror and feels his face is minimally changed from baseline. Patient's girlfriend was in the room as well. Stressed to patient that given his level of edema, this will likely significantly worsen Also discussed with patient that operative repair is time sensitive and that should he not undergo repair at this time the window for repair will likely closed Patient and patient's girlfriend expressed understanding of the above wrist Patient adamant that he does not want surgery Please call with questions
[2018-06-20 17:46] VITALS: BP 132/76; PULSE 103; TEMP 99; O2SAT 97
== END 2018-06-20 19:39 | disposition home or self-care (01) ==
LOC: NEPI 07:48 → EDBD 08:25 → N03 08:25 → MERGE 08:25 → N03 12:51 → N06 06-17 19:07
PROVIDERS: ADMIT Surgery; ATTEND Surgery
PROC: ORIFPAT (2018-06-15 10:26)
PROC: ORIFACE (2018-06-17 08:14)
DX: H11.421 Conjunctival edema, right eye; H02.209 Unspecified lagophthalmos unspecified eye, unspecified eyelid; S73.014A Posterior dislocation of right hip, initial encounter; H53.8 Other visual disturbances; S06.0X9A Concussion with loss of consciousness of unspecified duration, initial encounter; J98.11 Atelectasis; M96.89 Other intraoperative and postprocedural complications and disorders of the musculoskeletal system; V89.2XXA Person injured in unspecified motor-vehicle accident, traffic, initial encounter; Y92.410 Unspecified street and highway as the place of occurrence of the external cause; M89.8X9 Other specified disorders of bone, unspecified site; S02.19XA Other fracture of base of skull, initial encounter for closed fracture; R60.9 Edema, unspecified; S02.2XXA Fracture of nasal bones, initial encounter for closed fracture; S82.001B Unspecified fracture of right patella, initial encounter for open fracture type I or II; S01.81XA Laceration without foreign body of other part of head, initial encounter; S72.421 Displaced fracture of lateral condyle of right femur; S02.40EA Zygomatic fracture, right side, initial encounter for closed fracture; S02.40CA Maxillary fracture, right side, initial encounter for closed fracture; S27.329A Contusion of lung, unspecified, initial encounter; F17.210 Nicotine dependence, cigarettes, uncomplicated; S02.0XXA Fracture of vault of skull, initial encounter for closed fracture; H05.20 Unspecified exophthalmos; Z23 Encounter for immunization; S32.401A Unspecified fracture of right acetabulum, initial encounter for closed fracture

== ENCOUNTER 2018-06-24 06:16 | Observation (INO) ==
[2018-06-24] MEDS ORDERED: ceFAZolin 2 GM Premix Inj 2 GM/50 ML PIGGYBACK IV.SIG ONE (07:03)
[2018-06-24] MEDS ORDERED: ceFAZolin 2 GM Premix Inj 2 GM/50 ML PIGGYBACK IV.SIG PRN (08:05)
[2018-06-24] MEDS ORDERED: Chlorhexidine Gluconate 2% 1 Pack (2 Cloths) TOPICAL SCH (08:15)
[2018-06-24] MEDS ORDERED: Metoprolol Tartrate 25 MG Tablet PO SCH (08:15)
[2018-06-24] MEDS ORDERED: Bupivacaine/Epinephrine 0.5% Inj 50 ML Vial ONE (08:40)
[2018-06-24] MEDS ORDERED: Sodium Chlor 0.9% Inj 500 ML IV.SIG SCH (09:00)
[2018-06-24] MEDS ORDERED: Bupivacaine/Epinephrine PF Inj 0.25% 10 ML Vial INFILTRATN ONE ×2 (09:36→10:45)
[2018-06-24] MEDS ORDERED: Lidocaine PF 1% Inj 5 ML Syringe INFILTRATN ONE (12:00)
[2018-06-24] MEDS ORDERED: Succinylcholine Inj 100 MG/5 ML Syringe IV.PUSH ONE (12:00)
[2018-06-24] MEDS ORDERED: Dexmedetomidine Inj 200 MCG/2 ML Vial ONE (12:37)
[2018-06-24] MEDS ORDERED: fentaNYL Citrate Inj 100 MCG/2 ML Ampul ONE (13:17)
[2018-06-24] MEDS ORDERED: Dexmedetomidine Inj 200 MCG in Sodium Chlor 0.9% Inj 48 ML IV.CONT PRN (13:55)
[2018-06-24] MEDS ORDERED: *morphine SULFATE 4 MG/ML PERIprocedure ONLY ONE (15:18)
[2018-06-24] MEDS ORDERED: Bisacodyl 10 MG Supp RECTAL PRN (16:51)
[2018-06-24] MEDS ORDERED: Naloxone Inj 0.4 MG/ML Vial IV.PUSH PRN (16:53)
[2018-06-24] MEDS ORDERED: Morphine Inj 4 MG/ML Vial IV.PUSH PRN (16:53)
[2018-06-24] MEDS ORDERED: Sod Chloride 0.9% Inj 1,000 ML IV.CONT SCH (17:00)
[2018-06-24] MEDS ORDERED: Temazepam 15 MG Capsule PO PRN (21:00)
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
[2018-06-25 08:55] LABS: Baso # (Auto) 0.1 th/mm3 (0.0-0.2); Baso % (Auto) 0.4 % (0.0-2.0); Eos # (Auto) 0.1 th/mm3 (0.0-0.4); Eos % (Auto) 0.5 % (0.0-4.0); Lymph # (Auto) 2.1 th/mm3 (1.0-4.8); Lymph % (Auto) 16.2 % (9.0-44.0); Mean Corpuscular Hemoglobin 23.4 pg (27.0-34.0); Mean Corpuscular Volume 64.2 fL (80.0-100.0); Mean Platelet Volume 6.8 fL (7.0-11.0); Mono # (Auto) 0.9 th/mm3 (0.0-0.9); Mono % (Auto) 7.4 % (0.0-8.0); Neut # (Auto) 9.6 th/mm3 (1.8-7.7); Neut % (Auto) 75.5 % (16.0-70.0); Platelet Count 560 th/mm3 (150-450); Red Blood Count 2.51 mil/mm3 (4.50-5.90); Red Cell Distribution Width 19.5 % (11.6-17.2); White Blood Count 12.8 th/mm3 (4.0-11.0)
[2018-06-25 08:58] LABS: Mean Corpuscular HGB Conc 36.5 % (32.0-36.0)
[2018-06-25 08:59] LABS: Hematocrit 16.1 % (39.0-51.0); Hemoglobin 5.9 gm/dL (13.0-17.0)
[2018-06-25 09:09] LABS: Anion Gap 5 meq/L (5-15); Blood Urea Nitrogen 19 mg/dL (7-18); Carbon Dioxide 30.4 meq/L (21.0-32.0); Chloride 106 meq/L (98-107); Glomerular Filtration Rate Greater Than 89 mL/min (>89); Glucose,Random 93 mg/dL (74-106); Potassium 4.6 meq/L (3.5-5.1)
[2018-06-25 09:16] LABS: Sodium 141 meq/L (136-145)
[2018-06-25] MEDS ORDERED: Acetaminophen 325 MG Tablet PO PRN (09:30)
[2018-06-25 09:31] LABS: Platelet Morphology Normal (Normal); Target Cells 1+
[2018-06-25] MEDS ORDERED: Sodium Chlor 0.9% Inj 250 ML IV.SIG SCH (10:00)
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
[2018-06-25] MEDS: Morphine Inj 4 MG/ML Vial IV.PUSH PRN ×3 (10:41→17:45)
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
[2018-06-26 07:45] LABS: Baso % (Auto) 0.2 % (0.0-2.0); Eos # (Auto) 0.2 th/mm3 (0.0-0.4); Hematocrit 27.3 % (39.0-51.0); Hemoglobin 9.2 gm/dL (13.0-17.0); Lymph # (Auto) 1.6 th/mm3 (1.0-4.8); Lymph % (Auto) 13.7 % (9.0-44.0); Mean Corpuscular HGB Conc 33.6 % (32.0-36.0); Mean Corpuscular Hemoglobin 23.8 pg (27.0-34.0); Mean Corpuscular Volume 70.9 fL (80.0-100.0); Mean Platelet Volume 6.9 fL (7.0-11.0); Mono # (Auto) 0.6 th/mm3 (0.0-0.9); Neut # (Auto) 9.2 th/mm3 (1.8-7.7); Neut % (Auto) 79.1 % (16.0-70.0); Platelet Count 581 th/mm3 (150-450); Red Blood Count 3.85 mil/mm3 (4.50-5.90); Red Cell Distribution Width 25.3 % (11.6-17.2); White Blood Count 11.6 th/mm3 (4.0-11.0)
[2018-06-26 08:01] LABS: Albumin 2.3 g/dL (3.4-5.0); Anion Gap 7 meq/L (5-15); Aspartate Aminotransferase 45 U/L (15-37); Blood Urea Nitrogen 17 mg/dL (7-18); Calcium 8.3 mg/dL (8.5-10.1); Carbon Dioxide 28.4 meq/L (21.0-32.0); Chloride 109 meq/L (98-107); Glomerular Filtration Rate 89 mL/min (>89); Glucose,Random 113 mg/dL (74-106); Magnesium 2.2 mg/dL (1.5-2.5); Potassium 4.3 meq/L (3.5-5.1); Sodium 144 meq/L (136-145)
[2018-06-26 08:10] LABS: Alanine Aminotransferase 69 U/L (12-78); Alkaline Phosphatase 125 U/L (45-117); Free T4 (Free Thyroxine) 1.16 ng/dL (0.76-1.46); Thyroid Stimulating Hormone 0.744 uIU/mL (0.358-3.740); Total Protein 6.3 g/dL (6.4-8.2)
[2018-06-26 08:39] LABS: Dimorphic RBC Present; Eosinophils 2 % (0-4); Lymphocytes 6 % (9-44); Metamyelocytes 1 % (0-1); Monocytes 5 % (0-8); Platelet Morphology Normal (Normal); Tallied Nucleated RBC 1 (0-0)
[2018-06-26 08:40] LABS: Polychromasia 2.1 % (0.0-1.9); Target Cells 1+
[2018-06-26 10:37] LABS: Hemoglobin A1c 5.5 % (4.3-6.0)
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
--- NOTE | 2018-06-26 14:36 | P.PN ---
Subjective Interval history: Patient doing well. Feels better. Reports pain controlled. Physical Exam Vital signs: Vital Signs 06/25/18 16:00 06/25/18 16:17 06/25/18 16:40 Temperature 98.9 F 98.3 F 98.3 F Pulse Rate 89 98 H 98 H Respiratory Rate 18 17 17 Blood Pressure 117/63 127/77 127/77 Pulse Oximetry 99 98 98 06/25/18 16:59 06/25/18 19:03 06/25/18 19:29 Temperature 98.5 F 98.5 F 98.3 F Pulse Rate 88 90 90 Respiratory Rate 17 18 18 Blood Pressure 114/67 124/72 124/72 Pulse Oximetry 98 97 93 L 06/25/18 22:00 06/25/18 22:17 06/25/18 23:37 Temperature 98.2 F 98.2 F 99.3 F Pulse Rate 97 H 94 H 96 H Respiratory Rate 16 16 18 Blood Pressure 119/64 118/70 122/73 Pulse Oximetry 95 95 06/26/18 01:00 06/26/18 02:00 06/26/18 08:00 Temperature 98.3 F 98.7 F Pulse Rate 96 H 94 H Respiratory Rate 16 16 16 Blood Pressure 128/78 132/79 Pulse Oximetry 95 98 06/26/18 11:52 06/26/18 12:00 Temperature 98.7 F Pulse Rate 65 Respiratory Rate 18 17 Blood Pressure 127/68 Pulse Oximetry 98 Intake & Output 06/25/18 06/26/18 06/26/18 18:59 06:59 18:59 Intake Total 500 / 500 1280 / 1280 Output Total 1400 / 1400 600 / 600 Balance -900 / -900 680 / 680 Weight 80.6 kg Intake: Oral 500 / 500 480 / 480 Intake (Blood Product) Amt 0 / 0 800 / 800 Rbc As-3 Leukoreduced Unit 0 / 0 [id number] Rbc As-3 Leukoreduced Unit 0 / 0 400 / 400 [id number] Rbc As-3 Leukoreduced Unit 400 / 400 [id number] Output: Urine 1400 / 1400 600 / 600 Other: # Voids 3 Date of Last Bowel Movement 06/24/18 06/24/18 06/24/18 # Bowel Movements 0 Narrative: No focal deficits Dressing intact Appropriately tender Results - Labs CBC & Chem 7: 06/26/18 07:03 06/26/18 07:03 Laboratory Results - last 24 hr 06/25/18 06/26/18 06/26/18 11:24 07:03 07:03 WBC 11.6 H RBC 3.85 L Hgb 9.2 L D Hct 27.3 L MCV 70.9 L D MCH 23.8 L MCHC 33.6 RDW 25.3 H D Plt Count 581 H MPV 6.9 L Prelim Diff (Auto) Slide review pending Neut % (Auto) 79.1 H Lymph % (Auto) 13.7 [place] % (Auto) 5.0 Eos % (Auto) 2.0 Baso % (Auto) 0.2 Neut # (Auto) 9.2 H Lymph # (Auto) 1.6 [place] # (Auto) 0.6 Eos # (Auto) 0.2 Baso # (Auto) 0.0 WBC Differential Manual diff final Seg Neuts % (Manual) 86 H Lymphocytes % (Manual) 6 L Monocytes % (Manual) 5 Eosinophils % (Manual) 2 Metamyelocytes % (Man) 1 Abs Neuts (Manual) 10.1 H Nucleated RBCs/100 WBC 1 H Differential Comment . Platelet Estimate High H Platelet Morphology Normal Dimorphic RBCs Present H Polychromasia 2.1 H Target Cells 1+ H Sodium Potassium Chloride Carbon Dioxide Anion Gap BUN Creatinine Estimated GFR Random Glucose Hemoglobin A1c 5.5 Calcium Phosphorus Magnesium Total Bilirubin AST ALT Alkaline Phosphatase Total Protein Albumin TSH Free T4 Blood Type B Positive Antibody Screen Negative MTS Gel Crossmatch See Detail Bld Prod Order Comment 06/26/18 07:03 WBC RBC Hgb Hct MCV MCH MCHC RDW Plt Count MPV Prelim Diff (Auto) Neut % (Auto) Lymph % (Auto) [place] % (Auto) Eos % (Auto) Baso % (Auto) Neut # (Auto) Lymph # (Auto) [place] # (Auto) Eos # (Auto) Baso # (Auto) WBC Differential Seg Neuts % (Manual) Lymphocytes % (Manual) Monocytes % (Manual) Eosinophils % (Manual) Metamyelocytes % (Man) Abs Neuts (Manual) Nucleated RBCs/100 WBC Differential Comment Platelet Estimate Platelet Morphology Dimorphic RBCs Polychromasia Target Cells Sodium 144 Potassium 4.3 Chloride 109 H Carbon Dioxide 28.4 Anion Gap 7 BUN 17 Creatinine 0.95 Estimated GFR 89 Random Glucose 113 H Hemoglobin A1c Calcium 8.3 L Phosphorus 3.0 Magnesium 2.2 Total Bilirubin 0.5 AST 45 H ALT 69 Alkaline Phosphatase 125 H Total Protein 6.3 L Albumin 2.3 L TSH 0.744 Free T4 1.16 Blood Type Antibody Screen MTS Gel Crossmatch Bld Prod Order Comment - Imaging Impressions Face CT 06/26/18 00:00 CONCLUSION: 1. Status post plate fixation of the zygomatic complex with a depressed lateral orbital wall fragment abutting the lateral rectus muscle superiorly. 2. Complex right frontal and facial bone fractures, as above. - Procedures REPAIR OF FRACTURE OF ZYGOMATICOMAXILLARY COMPLEX FRACTURE ON RIGHT WITH ORIF 06-24 Assessment and Plan - Assessment (1) Zygoma fracture Code(s): S02.402A - Zygomatic fracture, unspecified side, initial encounter for closed fracture Status: Acute - Plan 37M [place] [facility] [place] Doing well Discharge per primary Have patient RTC plastic surgery clinic this ramo
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
[2018-06-27 00:18] VITALS: TEMP 98.3
[2018-06-27 04:24] VITALS: BP 125/72; PULSE 74; RESP 18; O2SAT 96
[2018-06-27 08:15] LABS: Hematocrit 30.1 % (39.0-51.0); Hemoglobin 10.1 gm/dL (13.0-17.0); Mean Corpuscular HGB Conc 33.6 % (32.0-36.0); Mean Corpuscular Hemoglobin 24.1 pg (27.0-34.0); Mean Corpuscular Volume 71.9 fL (80.0-100.0); Mean Platelet Volume 7.1 fL (7.0-11.0); Platelet Count 624 th/mm3 (150-450); Red Blood Count 4.19 mil/mm3 (4.50-5.90); Red Cell Distribution Width 26.2 % (11.6-17.2); White Blood Count 11.2 th/mm3 (4.0-11.0)
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
== END 2018-06-27 10:31 | disposition home or self-care (01) ==
LOC: N06 06:16 → HOR 06:16 → INTOOBSV 15:49 → HSDI 15:49 → N06 17:36
PROVIDERS: ADMIT Hospitalist; ATTEND Hospitalist